=== PATIENT | female | born 1995 | race Caucasian/White ===

== ENCOUNTER 2021-04-03 22:56 | Inpatient (IN) | payer MEDICAID ==
[~2021-04-03] VITALS: Ht 157.5 cm; Wt 81.6 kg
[2021-04-04] MEDS ORDERED: ACETAMINOPHEN 325MG TABLET PO STA (00:20)
[2021-04-04 00:37] LABS: BASOPHILS % 0.4 % (0.0-2.0); EOSINOPHILS % 2.5 % (0.0-5.0); HEMATOCRIT. 35.5 % (36.0-48.0); HEMOGLOBIN. 12.4 g/dL (12.0-16.0); LYMPHOCYTES % 20.2 % (20.0-50.0); MEAN CORPUSCULAR HEMOGLOBIN 30.6 pg (28.0-32.0); MEAN CORPUSCULAR VOLUME 87.6 fL (81.0-99.0); MEAN PLATELET VOLUME 8.5 fl (7.4-10.4); MONOCYTES % 5.2 % (2.0-8.0); NEUTROPHILS % 71.7 % (40.0-76.0); PLATELET 264 x1000/uL (130-400); RED BLOOD CELL COUNT 4.05 mill/uL (4.2-5.4)
[2021-04-04 00:47] LABS: CHLORIDE 107 mEq/L (98-107)
[2021-04-04 01:02] LABS: CLARITY URINE CLEAR (CLEAR); COLOR URINE YELLOW (YELLOW); KETONES URINE TRACE (NEGATIVE); LEUKOCYTE ESTERASE URINE TRACE (NEGATIVE); NITRITE URINE NEGATIVE (NEGATIVE); OCCULT BLOOD URINE NEGATIVE (NEGATIVE); PROTEIN URINE TRACE (NEGATIVE); SPECIFIC GRAVITY URINE 1.033 (1.005-1.030)
[2021-04-04 01:10] LABS: B-HCG QUANTITATIVE 29020 mIU/mL (<3)
[2021-04-04 01:21] LABS: *BARBITURATES SCREEN URINE NEGATIVE (NEGATIVE)
[2021-04-04 01:22] LABS: *AMPHETAMINES SCREEN URINE NEGATIVE (NEGATIVE); *BENZODIAZEPINES SCREEN URINE NEGATIVE (NEGATIVE); *COCAINE SCREEN URINE NEGATIVE (NEGATIVE); METHADONE URINE SCREEN NEGATIVE (NEGATIVE); OPIATES URINE SCREEN NEGATIVE (NEGATIVE)
[2021-04-04 01:23] LABS: CANNABINOID URINE SCREEN NEGATIVE (NEGATIVE); PHENCYCLIDINE URINE SCREEN NEGATIVE (NEGATIVE)
[2021-04-04] MEDS ORDERED: CEPHALEXIN 250MG CAPSULE PO SCH ×2 (01:30→03:30)
[2021-04-04] MEDS ORDERED: CEFTRIAXONE 1 G PREMIX 50 ML IV ONE (01:45)
[2021-04-04] MEDS ORDERED: MAGNESIUM/ALUMINUM HYDROXIDE/SIMETHICONE 30ML UDC PO STA (03:07)
[2021-04-04] MEDS ORDERED: VISCOUS LIDOCAINE 2% 15 ML UDC PO STA (03:07)
[2021-04-04] MEDS ORDERED: SODIUM CHLORIDE 0.9% 1,000 ML IV ONE (03:15)
[2021-04-04] MEDS ORDERED: ONDANSETRON HCL 4MG/2ML INJ IV ONE (03:15)
[2021-04-04] MEDS ORDERED: PROPOFOL 10MG/ML 100ML 0 ML IV ONE (07:03)
[2021-04-04] MEDS ORDERED: BUPIVACAINE HCL 0.5% (5MG/ML) 50ML ONE (07:03)
[2021-04-04] MEDS ORDERED: SKIN ADHESIVE 0.7 GM EA TOP ONE (07:03)
[2021-04-04] MEDS ORDERED: DEXT 5%/0.45% NACL KCL 20MEQ/L 1,000 ML IV SCH (07:15)
[2021-04-04] MEDS ORDERED: MORPHINE SULFATE 2 MG/ML CPJ (NOT FOR IM USE) IV PRN (07:15)
[2021-04-04] MEDS ORDERED: HYDROMORPHONE HCL/PF 2MG/ML (OR) ONE (07:17)
[2021-04-04] MEDS ORDERED: ROCURONIUM BROMIDE 10MG/ML VIAL 5ML IV ONE (07:17)
[2021-04-04] MEDS ORDERED: DEXAMETHASONE 4MG/ML 1ML VIAL ONE (07:18)
[2021-04-04] MEDS ORDERED: PROPOFOL 10MG/ML 100ML 100 ML IV ONE (07:50)
[2021-04-04] MEDS ORDERED: ONDANSETRON HCL 4MG/2ML INJ IV PRN (08:00)
[2021-04-04] MEDS ORDERED: HYDROMORPHONE HCL/PF 2MG/ML CPJ IV PRN (08:00)
[2021-04-04] MEDS ORDERED: MEPERIDINE HCL/PF 25MG/ML CPJ IV PRN (08:00)
[2021-04-04] MEDS ORDERED: LABETALOL 5MG/ML SYR 20 MG/4 ML SYRINGE IV PRN (08:00)
[2021-04-04] MEDS ORDERED: IPRATROPIUM/ALBUTEROL 0.5-3(2.5)MG/3ML NEB ONE (09:39)
[2021-04-04 12:00] VITALS: BP 113/55
[2021-04-04] MEDS ORDERED: PNV1TABL50 MT (12:16)
[2021-04-04 13:05] VITALS: BP 113/55
[2021-04-04 16:00] VITALS: BP 112/64
[2021-04-04] MEDS: PRENATAL VIT/FE FUMARATE/FA TABLET PO SCH (17:24)
[2021-04-04] MEDS: DEXT 5%/0.45% NACL KCL 20MEQ/L 1,000 ML IV SCH (18:16)
[2021-04-04 20:00] VITALS: BP 120/56
[2021-04-05] VITALS: BP 100/60
[2021-04-05 04:00] VITALS: BP 115/60
[2021-04-05] MEDS: DEXT 5%/0.45% NACL KCL 20MEQ/L 1,000 ML IV SCH (04:43)
[2021-04-05 07:27] LABS: BASOPHILS % 0.2 % (0.0-2.0); EOSINOPHILS % 0.5 % (0.0-5.0); HEMATOCRIT. 35.1 % (36.0-48.0); HEMOGLOBIN. 11.7 g/dL (12.0-16.0); LYMPHOCYTES % 17.2 % (20.0-50.0); MEAN CORPUSCULAR HEMOGLOBIN 29.3 pg (28.0-32.0); MEAN CORPUSCULAR VOLUME 88.5 fL (81.0-99.0); MEAN PLATELET VOLUME 9.3 fl (7.4-10.4); NEUTROPHILS % 77.1 % (40.0-76.0); PLATELET 235 x1000/uL (130-400); RED BLOOD CELL COUNT 3.97 mill/uL (4.2-5.4); RED CELL DISTRIBUTION WIDTH 13.1 % (11.6-14.6)
[2021-04-05 07:31] LABS: CHLORIDE 110 mEq/L (98-107)
[2021-04-05 08:00] VITALS: BP 103/67
[2021-04-05] MEDS: PRENATAL VIT/FE FUMARATE/FA TABLET PO SCH (08:20)
[2021-04-05 12:00] VITALS: BP 109/65
[2021-04-05 13:31] VITALS: BP_SYST 106; BP_SYST 109; BP_DIAS 52; BP_DIAS 65
== END 2021-04-05 18:43 | disposition home or self-care (01) | DRG 547 ==
LOC: ER 22:56 → MICUNO 04-04 04:56 → CANRESERV 04-04 07:50 → ENRESERV 04-04 07:50 → CANBEDREQ 04-04 10:27 → 7EST 04-04 12:47
PROVIDERS: ADMIT Internal Medicine; ATTEND Internal Medicine
PROC: 0DTJ0ZZ Resection of Appendix, Open Approach (ICD-10-PCS; principal; 2021-04-04)
DX: O99.612 Diseases of the digestive system complicating pregnancy, second trimester (principal); K35.80 Unspecified acute appendicitis; Z20.822 Contact with and (suspected) exposure to COVID-19; Z3A.20 20 weeks gestation of pregnancy
CPT/HCPCS: 36415; 74181; 76705; 76805; 80048; 80053; 80305; 81003; 84702; 85025; 86850; 86900; 87426; 88304; 94640; 99285; J1100; J1170; J2270; J2405; J2704; J3490; J7030

== ENCOUNTER 2021-04-09 19:21 | Observation (INO) | payer MEDICAID ==
[~2021-04-09] VITALS: Ht 157.5 cm; Wt 83.0 kg
[~2021-04-09 19:21] MED LIST: PNV1TABL50 MT
[2021-04-09] MEDS ORDERED: ACETAMINOPHEN 500MG TABLET PO NR (20:15)
[2021-04-09] MEDS: LACTATED RINGERS 1,000 ML IV SCH ×2 (20:40→22:06)
[2021-04-09 20:55] LABS: BASOPHILS % 0.2 % (0.0-2.0); CLARITY URINE CLOUDY (CLEAR); COLOR URINE YELLOW (YELLOW); EOSINOPHILS % 1.1 % (0.0-5.0); HEMATOCRIT. 36.6 % (36.0-48.0); HEMOGLOBIN. 12.3 g/dL (12.0-16.0); KETONES URINE NEGATIVE (NEGATIVE); LEUKOCYTE ESTERASE URINE NEGATIVE (NEGATIVE); MEAN CORPUSCULAR HEMOGLOBIN 29.5 pg (28.0-32.0); MEAN CORPUSCULAR VOLUME 88.1 fL (81.0-99.0); MEAN PLATELET VOLUME 8.7 fl (7.4-10.4); MONOCYTES % 5.6 % (2.0-8.0); NEUTROPHILS % 81.1 % (40.0-76.0); NITRITE URINE NEGATIVE (NEGATIVE); OCCULT BLOOD URINE NEGATIVE (NEGATIVE); PLATELET 297 x1000/uL (130-400); PROTEIN URINE NEGATIVE (NEGATIVE); RED BLOOD CELL COUNT 4.16 mill/uL (4.2-5.4); RED CELL DISTRIBUTION WIDTH 12.8 % (11.6-14.6); SPECIFIC GRAVITY URINE 1.011 (1.005-1.030)
[2021-04-09] MEDS ORDERED: AMOX-424 PO (21:53)
[2021-04-09] MEDS ORDERED: METAMUCIL (22:26)
== END 2021-04-09 22:55 | disposition home or self-care (01) ==
LOC: 8 EST LDRP 19:21
PROVIDERS: ADMIT Obstetrics & Gynecology; ATTEND Obstetrics & Gynecology
DX: O26.892 Other specified pregnancy related conditions, second trimester (principal); R10.84 Generalized abdominal pain; G89.18 Other acute postprocedural pain; Z3A.20 20 weeks gestation of pregnancy
CPT/HCPCS: 36415; 59025; 81003; 85025; 96360; G0378; 96361; 99281